=== PATIENT | female | born 1985 | race Caucasian/White ===

== ENCOUNTER 2022-03-22 12:45 | Emergency (ER) | payer OTHER ==
[~2022-03-22] VITALS: Ht 165.1 cm; Wt 74.4 kg
[2022-03-22] MEDS ORDERED: ONDANSETRON 4 MG/2 ML VIAL IV ONE (14:00)
[2022-03-22] MEDS ORDERED: FAMOTIDINE. 20 MG/2 ML VIAL IV ONE ×2 (14:00→14:28)
[2022-03-22] MEDS ORDERED: IV NORMAL SALINE 1000 ML BAG IV ONE (14:00)
[2022-03-22 14:13] LABS: HEMATOCRIT 42.8 % (31.2-41.9); MEAN CORPUSCULAR HEMOGLOBIN 26.3 uug (24.7-32.8); PLATELET COUNT (AUTO) 322 K/uL (179-408)
[2022-03-22 14:25] LABS: BILIRUBIN,DIRECT 0.1 mg/dL (0.0-0.2); BILIRUBIN,TOTAL 0.4 mg/dL (0.2-1.0); CREATININE 0.9 mg/dL (0.6-1.3); POTASSIUM 3.7 mmol/L (3.5-5.1); TOTAL PROTEIN, SERUM 7.8 g/dL (6.4-8.2)
--- NOTE | 2022-03-22 14:26 | NUR ---
Orders carried out and given as ordered.
[2022-03-22] MEDS ORDERED: ONDANSETRON 4 MG/2 ML VIAL ONE (14:28)
[2022-03-22 14:42] LABS: *BILIRUBIN,URIN NEGATIVE (NEGATIVE); *BLOOD, URINE 3+ (NEGATIVE); *CLARITY,URINE CLEAR (CLEAR); *COLOR,URINE YELLOW (YELLOW); *KETONES,URINE NEGATIVE (NEGATIVE); *UROBILINOGEN,URINE 0.2 E.U./dl (NORMAL); LEUKOCYTE ESTERASE ,URINE NEGATIVE (NEGATIVE); NITRITE, URINE NEGATIVE (NEGATIVE); UGLUCOSE NEGATIVE (NEGATIVE)
[2022-03-22 14:57] LABS: *URINE HCG, QUAL NEGATIVE (NEGATIVE)
[2022-03-22 15:09] LABS: BACTERIA,URINE NONE SEEN /HPF (NONE SEEN); RBC,URINE 20-50 /HPF (0-3); SQUAMOUS EPITHELIAL CELL,UR FEW /HPF (NONE SEEN); WBC,URINE 0-3 /HPF (0-3)
[2022-03-22] MEDS ORDERED: DICY20TA11 PO (15:41)
[2022-03-22] MEDS ORDERED: DICYCLOMINE HCL LIQ 10 MG/5 ML UDC ONE (15:59)
[2022-03-22] MEDS ORDERED: DICYCLOMINE HCL 20 MG TABLET PO ONE (16:15)
[2022-03-22] MEDS ORDERED: FAMO-132 PO (16:17)
[2022-03-22] MEDS ORDERED: ONDA4TAB11 PO (16:17)
[2022-03-22 16:46] VITALS: BP 110/75
--- NOTE | 2022-03-22 16:47 | NUR ---
Patient discharged to home in stable condition. Written and verbal after care instructions given. Patient verbalizes understanding of instructions. Stressed follow up or return to ER for worsening s/s.
== END 2022-03-22 16:25 | disposition home or self-care (01) ==
LOC: ER 12:45
DX: R10.9 Unspecified abdominal pain (principal); R11.2 Nausea with vomiting, unspecified; R19.7 Diarrhea, unspecified; R31.9 Hematuria, unspecified; K58.9 Irritable bowel syndrome, unspecified
CPT/HCPCS: 99284; 96374; 76705; 96375; 80076; 80048; 81001; 84703; 83690; 85025; 36415; J3490; J2405; J7040; A4663